=== PATIENT | male | born 1935 | race Caucasian/White ===

== ENCOUNTER → 2016-03-24 | Outpatient (CLI) | payer MEDICARE, OTHER, MEDICAID ==
[~2016-03-24] MED LIST: AC325T PO; ACET325T38 PO; ACID1TAB4 PO; AGM500T PO; AMOX500C5 PO; ARFO15VI IH; ASCO500T20 PO; ASPI-245 PO; ASPI-586 PO; ASPI-860 PO; ATOR40TA2 PO; BENZ-22 PO; BMT1T PO; BUDE0.5A5 IH; BUME2TAB3 PO; CARV12.5 PO; CEPH-331 PO; CEPH-507 PO; CHOL10002 PO; CHOL200014 PO; CITA10TA4 PO; CLIN-78 PO; CLIN150C2 PO; CLR500T PO; CRV6.25T PO; DORZ10DR19 OU; DOXY-182 PO; DOXY100C2 PO; DOXY100T41 PO; DUONEB 0.5 MG-33 ML INH; ESTA1TAB PO; FAMO-107 PO; FIBERSTAT PO; FLUT10SP NS; FLUT10SP NSEACH; GFN600TCR PO; HYDR-3811 PO; HYDR-3881 PO; IPRA3AMP11 INH; KCL20TCR PO; LEVA1.2515 IH; LSRT50T PO; LVF500T PO; MAGN400O7 PO; METO2.5T PO; METO25TA60 PO; METO5TAB6 PO; NITR0.4T SL; OFL.3OP5 RIGHT EAR; PRED10TA PO; PRED20TA PO; PRED50TA PO; PSYL1PAC10 PO; PSYL1PAC11 PO; PSYL660P17 PO; SPIR25TA PO; SULF-221 PO; TIMO10DR OU; TRAZ-28 PO; URSO300C3 PO; WARF1TAB PO; ZOLP10TA PO; lidocaine patch
[2016-03-24 14:20] LABS: ANION GAP 12.2 MEQ/L (3-15); MAGNESIUM* 2.3 mg/dL (1.6-2.3)
== END ==
LOC: LAB 13:53
PROVIDERS: ATTEND Family Medicine
DX: R79.89 Other specified abnormal findings of blood chemistry (principal); E83.42 Hypomagnesemia
CPT/HCPCS: 36415; 80048; 83735

== ENCOUNTER → 2016-05-01 | Outpatient (CLI) | payer MEDICARE, OTHER, MEDICAID | LOC: EMS 17:45 | DX: Z53.20 Procedure and treatment not carried out because of patient's decision for unspecified reasons (principal) ==

== ENCOUNTER 2016-05-16 14:52 | Emergency (ER) | payer MEDICARE, OTHER, MEDICAID ==
[~2016-05-16] VITALS: Ht 205.7 cm; Wt 118.6 kg
[2016-05-16] MEDS ORDERED: BACITRACIN OINTMENT 0.9 GM PACKET TOP ONE (16:15)
[2016-05-16 16:27] VITALS: BP 132/72
== END 2016-05-16 16:25 | disposition home or self-care (01) ==
LOC: ED 14:53
DX: S41.111A Laceration without foreign body of right upper arm, initial encounter (principal); W18.39XA Other fall on same level, initial encounter; Y92.531 Health care provider office as the place of occurrence of the external cause
CPT/HCPCS: 99283; A9270; 99282

== ENCOUNTER → 2016-05-16 | Outpatient (CLI) | payer MEDICARE, OTHER, MEDICAID | LOC: EMS 14:45 | PROVIDERS: ATTEND Family Medicine | DX: S50.311A Abrasion of right elbow, initial encounter (principal); W18.39XA Other fall on same level, initial encounter; Y92.531 Health care provider office as the place of occurrence of the external cause ==

== ENCOUNTER → 2016-05-17 | Outpatient (CLI) | payer MEDICARE, OTHER, MEDICAID | LOC: RAD 13:25 | PROVIDERS: ATTEND Family Medicine | DX: M25.551 Pain in right hip (principal); M16.11 Unilateral primary osteoarthritis, right hip; W19.XXXA Unspecified fall, initial encounter | CPT/HCPCS: 73502 ==

== ENCOUNTER 2016-06-13 17:01 | Observation (INO) | payer MEDICARE, OTHER, MEDICAID ==
[~2016-06-13] VITALS: Ht 182.9 cm; Wt 129.0 kg
[~2016-06-13 17:01] MED LIST changes: -CINN1POW MC; -FLUT16SP NSEACH; -HYDR-33 PO; -LEVO5TAB12 PO; -METO10TA7 PO; -MULT1TAB69 PO; -OMEG10005 PO; -TRAV5DRO OU; -UBID100C17 PO
[2016-06-13] MEDS ORDERED: HYDROmorphone 1 MG/ML (DILAUDID) SYRINGE IV ONE ×2 (17:35→19:00)
[2016-06-13 17:58] LABS: BASOPHILS % (AUTO) 0 % (0-2); EOSINOPHILS % (AUTO) 0 % (0-4); LYMPHOCYTES # (AUTO) 1.2 X10^3; MEAN PLATELET VOLUME 9.9 FL (6.0-9.5); MONOCYTES # (AUTO) 0.7 X10^3; MONOCYTES % (AUTO) 7 % (3-11); NEUTROPHILS # (AUTO) 7.7 X10^3; NEUTROPHILS % (AUTO) 80 % (51-67); PLATELET COUNT 203 10^3uL (150-450); WHITE BLOOD COUNT 9.63 10^3uL (4.0-11.0)
[2016-06-13 17:59] LABS: MEAN CORPUSCULAR HEMOGLOBIN 31.9 PG (26.0-34.0); MEAN CORPUSCULAR HGB CONC 31.7 g/dL (31.0-37.0); MEAN CORPUSCULAR VOLUME 101 FL (80-100)
[2016-06-13 18:02] LABS: ALBUMIN 3.9 g/dL (3.4-5.0); ANION GAP 18.1 MEQ/L (3-15); CALCULATED IONIZED CALCIUM 3.9 mg/dL (3.8-4.6); TOTAL PROTEIN 6.8 g/dL (6.4-8.5)
--- NOTE | 2016-06-13 18:56 | Diagnostic Imaging Report ---
PROCEDURE: CT chest, abdomen, and pelvis without contrast. TECHNIQUE: Multiple contiguous axial images were obtained through the chest, abdomen, and pelvis without the use of intravenous contrast. INDICATION: Chest and abdominal pain CT chest: Lungs are clear. There is coronary atherosclerosis. There are postop changes from CABG surgery. There is no hilar or mediastinal lymphadenopathy. IMPRESSION: No acute abnormalities in the chest. CT abdomen and pelvis: There is a large amount of food residue in the stomach. Liver appears normal. Gallbladder is present. Spleen is not enlarged. Pancreas is normal. Adrenals are normal. There is a cyst on the lateral margin of the right kidney. Left kidney is normal. There is no hydronephrosis or calculus. There is some calcific atherosclerosis of the aorta but no aneurysm. The appendix is normal. Small bowel is not dilated. There is diverticulosis of the colon but no evidence of diverticulitis. Urinary bladder is normal. Prostate is not enlarged. There is right inguinal hernia containing fat. IMPRESSION: Uncomplicated diverticulosis of the colon. No acute abnormality seen in the abdomen or pelvis. Dictated by: Dictated on workstation # [id number]
[2016-06-13] MEDS ORDERED: TETANUS, DIPTHERIA, PERTUSSIS (ADACELL) VACCINE 0.5 ML VIAL IM ONE (19:00)
[2016-06-13] MEDS ORDERED: ALBUTEROL/IPRATROPIUM 3MG-0.5MG/3ML (DUONEB) NEB VIAL INH ONE (19:20)
--- NOTE | 2016-06-13 19:48 | NUR ---
PT ASSISTED TO BATHROOM AND BACK TO THE CHAIR. PT STATES HE DOES NOT WANT TO CLIMB BACK UP INTO THE BED BECAUSE IT IS UNCOMFORTABLE. PT IS SEATED IN CHAIR, RT ARM PROPPED UP ON BEDSIDE TABLE.
--- NOTE | 2016-06-13 19:55 | Diagnostic Imaging Report ---
Indication: Right elbow injury 3 views of right elbow show postop changes from internal fixation of the proximal ulna and olecranon process. Fracture appears healed in good alignment. There is no acute fracture seen. Impression: Old healed fracture proximal humerus with hardware from internal fixation. No acute abnormality seen. Dictated by: Dictated on workstation # [id number]
[2016-06-13] MEDS ORDERED: LIDOCAINE 1% (XYLOCAINE) 20 ML VIAL INJ ONE (20:10)
[2016-06-13] MEDS ORDERED: ceFAZolin 1,000 MG in SODIUM CHLORIDE VIAL (PF) 10 ML IV ONE (21:05)
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
[2016-06-13] MEDS ORDERED: ONDANSETRON 2 MG/ML (Z0FRAN) 2 ML VIAL IV PRN (22:00)
[2016-06-13] MEDS ORDERED: ACETAMINOPHEN 325 MG TAB (TYLENOL) PO PRN (22:00)
[2016-06-13] MEDS ORDERED: CALCIUM CARBONATE CHEWABLE 300 MG (TUMS) TABLET PO PRN (22:00)
[2016-06-13] MEDS ORDERED: POLYETHYLENE GLYCOL 17 GM (MIRALAX) PACKET PO PRN (22:00)
[2016-06-13] MEDS ORDERED: VANCOMYCIN 1,000 MG in SODIUM CHLORIDE 250 ML IV ONE (22:10)
[2016-06-13] MEDS ORDERED: ALBUTEROL 0.083% NEB SOLUTION 2.5 MG/3 ML VIAL INH PRN (22:10)
[2016-06-13] MEDS: ALBUTEROL/IPRATROPIUM 3MG-0.5MG/3ML (DUONEB) NEB VIAL INH SCH (22:10)
[2016-06-13] MEDS ORDERED: NITROGLYCERIN SUBLINGUAL 0.4 MG (NITROQUICK) TABLET SL PRN (22:15)
[2016-06-13] MEDS ORDERED: guaiFENesin ER 600 MG (MUCINEX) TAB PO PRN (22:15)
--- NOTE | 2016-06-13 22:20 | NUR ---
Admitted to room. Oriented to room and hospital procedures. Jim Wrap intact to right elbow with small amount of blood showing through. Bilateral lower legs have 3 plus edema up to knee. Dressing to right anterior ankle area dry and intact, where PCP removed fluid from blistered area yesterday.
[2016-06-13 22:30] VITALS: BP 147/62
[2016-06-13 22:33] VITALS: BP 147/62
--- NOTE | 2016-06-13 22:50 | NUR ---
Dr Greene on tele doc to assess patient.
--- NOTE | 2016-06-13 23:20 | NUR ---
Patient sitting on edge of bed to eat, before he lays down.
[2016-06-13] MEDS ORDERED: VANCOMYCIN 1000 MG VIAL ONE (23:41)
[2016-06-13] MEDS ORDERED: SODIUM CHLORIDE 250 ML ONE (23:41)
[2016-06-13] MEDS ORDERED: CARVEDILOL 12.5 MG (COREG) TABLET ONE (23:43)
--- NOTE | 2016-06-13 23:45 | NUR ---
Ate 100% of meal. Ready for sleep. Right arm elevated on pillow. Dressing wrapped with Coban remains intact. Small amount of bloody drainage noted under coban. Right hand bruised, No bruising of right rib area. Has large reddened area on posterior left leg that patient states is from old stasis ulcer. Stood at side of bed and voided 300 cc yellow urine without difficulty. Call light within reach. Denies need for pain medication at this time.
[2016-06-13 23:46] VITALS: BP 136/65
[2016-06-13] MEDS: CARVEDILOL 6.25 MG (COREG) TAB PO SCH (23:49)
[2016-06-14 04:07] VITALS: BP 130/67
[2016-06-14 06:02] LABS: BASOPHILS % (AUTO) 0 % (0-2); EOSINOPHILS % (AUTO) 0 % (0-4); LYMPHOCYTES # (AUTO) 1.5 X10^3; MEAN CORPUSCULAR HEMOGLOBIN 31.1 PG (26.0-34.0); MONOCYTES % (AUTO) 11 % (3-11); NEUTROPHILS # (AUTO) 5.9 X10^3; NEUTROPHILS % (AUTO) 70 % (51-67); PLATELET COUNT 150 10^3uL (150-450)
[2016-06-14] MEDS: PANTOPRAZOLE 40 MG (PROTONIX) TAB PO SCH (06:06)
[2016-06-14 06:17] LABS: MEAN CORPUSCULAR HGB CONC 30.6 g/dL (31.0-37.0); MEAN CORPUSCULAR VOLUME 102 FL (80-100)
[2016-06-14 06:24] LABS: ANION GAP 12.2 MEQ/L (3-15); PHOSPHORUS 4.9 mg/dL (2.4-4.9)
--- NOTE | 2016-06-14 06:30 | NUR ---
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 Arm hangs to his side. Moves right arm with left hand when he needs it moved. Uses walker at home and here, yet difficult at times due to recent right arm injury. Moves fingers on both hands. Generalized weakness of right arm. Dressing intact to right ankle are, where patient stated he had a large blister and Dr Cardona removed fluid from area yesterday in the office. IV NS continues to infuse at 100 cc an hour without complications to site. Call light within reach.
[2016-06-14] MEDS: BUDESONIDE NEBS 0.5 MG/2ML (PULMICORT) AMP INH SCH ×2 (07:35→20:51)
[2016-06-14] MEDS: ALBUTEROL/IPRATROPIUM 3MG-0.5MG/3ML (DUONEB) NEB VIAL INH SCH ×4 (07:36→20:51)
[2016-06-14 07:59] VITALS: BP 119/52
[2016-06-14] MEDS: HYDROmorphone 1 MG/ML (DILAUDID) SYRINGE IV PRN ×2 (08:11→12:42)
[2016-06-14] MEDS ORDERED: DOCUSATE SODIUM 100 MG (COLACE) CAP PO PRN (08:55)
[2016-06-14] MEDS ORDERED: NS FLUSH 3 ML PRN IV (09:20)
[2016-06-14] MEDS ORDERED: NS FLUSH 10 ML PRN IV (09:20)
--- NOTE | 2016-06-14 09:56 | Progress Note (E) ---
Progress Note S: Awake complains of feeling sore all over, tolerated breakfast O: I & O Past 24 hrs 06/14/16 07:00 Intake Total 840 ml Output Total 300 ml Balance 540 ml Intake Oral 240 ml IV Total 600 ml Output Urine Total 300 ml Vitals: Vital Signs Date Time Temp Pulse Resp B/P Pulse Ox O2 Delivery O2 Flow Rate FiO2 06/14/16 07:59 96.8 60 20 119/52 94 Room air GEN: Awake, alert, oriented, NAD HEENT: EOMI, PERRL, moist oral mucosa. CV: RRR S1 S2 normal with no murmur LUNGS: CTA B ABD: Soft, NT/ND with normal bowel sounds. EXTR: No C/C/E. Normal peripheral pulses. INTEG: No rash. NEURO: No focal motor neuro deficit. Weight: 118.1 kg CBC BMP Last 24 Hrs 06/13/16 17:44 06/14/16 05:25 Laboratory Results Past 24 Hrs 06/13/16 17:44: Alanine Aminotransferase (ALT/SGPT) 28, Albumin 3.9, Albumin/Globulin Ratio 1.344, Alkaline Phosphatase 75, Anion Gap 18.1, Aspartate Amino Transf (AST/SGOT ) 38, BUN/Creatinine Ratio 29, Basophils # (Auto) 0.0, Basophils (%) (Auto) 0, Blood Urea Nitrogen 44, Calcium Level 8.6, Calcium/Ionized Calcium Ratio 3.9, Calculated Osmolality 291, Carbon Dioxide Level 27, Chloride Level 105, Creatinine 1.51, Eosinophils # (Auto) 0.0, Eosinophils (%) (Auto) 0, Estimat Glomerular Filtration Rate 53.8, Estimated GFR (Non- 44.5, Glucose Level 116, Hematocrit 37.90, Hemoglobin 12.0, Lymphocytes # (Auto) 1.2, Lymphocytes (%) (Auto) 12, Mean Corpuscular Hemoglobin 31.9, Mean Corpuscular Hemoglobin Concent 31.7, Mean Corpuscular Volume 101, Mean Platelet Volume 9.9, Monocytes # (Auto) 0.7, Monocytes (%) (Auto) 7, Neutrophils # (Auto) 7.7, Neutrophils (%) (Auto) 80, Platelet Count 203, Potassium Level 5.5, Prothromb Time International Ratio 1.1, Prothrombin Time 11.9, Red Blood Count 3.76, Red Cell Distribution Width 13.8, Sodium Level 145, Total Bilirubin 0.8, Total Protein 6.8, White Blood Count 9.63 06/14/16 05:25: Albumin 3.0, Anion Gap 12.2, Basophils # (Auto) 0.0, Basophils (%) (Auto) 0, Blood Urea Nitrogen 43, Calcium Level 8.4, Carbon Dioxide Level 28, Chloride Level 108, Creatinine 1.48, Eosinophils # (Auto) 0.0, Eosinophils (%) (Auto) 0, Estimat Glomerular Filtration Rate 55.1, Estimated GFR (Non- 45.5, Glucose Level 89, Hematocrit 34.30, Hemoglobin 10.5, Lymphocytes # (Auto) 1.5, Lymphocytes (%) (Auto) 18, Mean Corpuscular Hemoglobin 31.1, Mean Corpuscular Hemoglobin Concent 30.6, Mean Corpuscular Volume 102, Mean Platelet Volume 10.0, Monocytes # (Auto) 1.0, Monocytes (%) (Auto) 11, Neutrophils # ( Auto) 5.9, Neutrophils (%) (Auto) 70, Platelet Count 150, Potassium Level 4.3, Red Blood Count 3.38, Red Cell Distribution Width 13.9, Sodium Level 144, White Blood Count 8.40, Phosphorus Level 4.9 IMAGING: ELBOW, RIGHT, 3 VIEWS Indication: Right elbow injury 3 views of right elbow show postop changes from internal fixation of the proximal ulna and olecranon process. Fracture appears healed in good alignment. There is no acute fracture seen. Impression: Old healed fracture proximal humerus with hardware from internal fixation. No acute abnormality seen. CT CHEST/ABDOMEN/PELVIS WO PROCEDURE: CT chest, abdomen, and pelvis without contrast. CT chest: Lungs are clear. There is coronary atherosclerosis. There are postop changes from CABG surgery. There is no hilar or mediastinal lymphadenopathy. IMPRESSION: No acute abnormalities in the chest. CT abdomen and pelvis: There is a large amount of food residue in the stomach. Liver appears normal. Gallbladder is present. Spleen is not enlarged. Pancreas is normal. Adrenals are normal. There is a cyst on the lateral margin of the right kidney. Left kidney is normal. There is no hydronephrosis or calculus. There is some calcific atherosclerosis of the aorta but no aneurysm. The appendix is normal. Small bowel is not dilated. There is diverticulosis of the colon but no evidence of diverticulitis. Urinary bladder is normal. Prostate is not enlarged. There is right inguinal hernia containing fat. IMPRESSION: Uncomplicated diverticulosis of the colon. No acute abnormality seen in the abdomen or pelvis. ASSESSMENT 1) S/P Mechanical Fall w/ laceration to the right elbow which has hardware from prior internal fixation; laceration repaired by ER physician. Patient's wound irrigated. closed and he received 1 gram of Ancef. 2) Right elbow pain, chest wall/rib pain s/p mechanical fall; concern re: patient's ability to care for himself at home at this time 3) Mild Dehydration and CKD 4) COPD 5) HTN 6) HLD 7) CAD s/p CABG 8) H/o CVA 9) H/o chronic back and leg pain 10) LE edema and venous stasis dermatitis 11) [place] PLAN: Heart Healthy diet Home meds as indicated PT consult SW/Case management consult for possible placement- in the past pt has refused placement PO and IV Pain meds if needed Duoneb treatments QID and Albuterol q 2 hours prn CPAP at night Fall Precautions Dr Pizarro' note : I saw Mr Jeffers today and he still c/o pain.He denied sob and admitted rt. elbow and chest pain from the impact of the fall.He denies and nausea,emesis or diarrhea. heart demonstrates a regular rate and rhythm lungs show bilateral wheezes abdomen is soft ;bowel sounds are active extremities are not cyanotic or edemetous assessment: 1.s/p mechanical fall 2. copd 3.CKD,MILD DEhydration 4.hypertension 5.cad 6.CABG X 6 VESSELS 7.CVA BY HISTORY 8.chronic back pain 9.chronic leg pain Plan: pain meds; cpap and duoneb along with albuterol I have read and agree with the diagnoses,the plan and the progress note written by Ms Graves. Meche Graves WINDOWS DESKTOP SUPPORT Jun 14, 2016 09:56 HERNAN PIZARRO DO Jun 14, 2016 15:12
[2016-06-14] MEDS: CARVEDILOL 6.25 MG (COREG) TAB PO SCH ×2 (10:06→18:30)
[2016-06-14] MEDS: CHOLECALCIFEROL 1000 INT UNITS (VITAMIN D3) TABLET PO SCH (10:06)
[2016-06-14] MEDS: PSYLLIUM SF (METAMUCIL) PACKET PO SCH (10:06)
[2016-06-14] MEDS: predniSONE 10 MG (DELTASONE) TABLET PO SCH (10:06)
[2016-06-14] MEDS: BUMETANIDE 1 MG (BUMEX) TAB PO SCH ×2 (10:06→12:37)
[2016-06-14] MEDS: SPIRONOLACTONE 25 MG (ALDACTONE) TABLET PO SCH (10:06)
[2016-06-14] MEDS: ASPIRIN 81 MG CHEW (CHILDREN'S ASA) PO SCH (10:06)
[2016-06-14] MEDS: FLUTICASONE NASAL 50 MCG/SPRAY (FLONASE) 16 GM BTL NS SCH (10:09)
[2016-06-14] MEDS: MAGNESIUM HYDROXIDE 80MG/ML (MILK OF MAGNESIA) 30 ML UDC PO PRN (10:10)
[2016-06-14] MEDS: TIMOLOL OU SCH ×2 (10:10→20:34)
[2016-06-14] MEDS: DORZOLAMIDE OU SCH ×2 (10:10→20:34)
[2016-06-14] MEDS ORDERED: METO10TA7 PO (10:59)
[2016-06-14] MEDS ORDERED: FLUT16SP NSEACH (10:59)
[2016-06-14] MEDS ORDERED: TRAV5DRO OU (10:59)
[2016-06-14] MEDS ORDERED: LEVO5TAB12 PO (10:59)
[2016-06-14] MEDS: ARFORMOTEROL NEB SOLUTION (BROVANA) 15 MCG/2 ML VIAL IH SCH ×2 (11:25→20:50)
[2016-06-14 11:41] VITALS: BP 116/59
[2016-06-14] MEDS ORDERED: HYDR-33 PO (11:55)
--- NOTE | 2016-06-14 13:25 | NUR ---
Visited with Pt. who reported he lives in his own apartment by himself. He stated he has had some falls. He said he gets dizzy and he is supposed to have crystals but they don't stay in his ears. Pt. stated when he falls he uses his lifeline. He has a walker at home but reports he is supposed to get a motorized chair this week. Pt. has home health services through [email or web address]. They come in and help with bathing, meals, and cleaning. He also receives PT/OT. Pt. states he knows at some point he will need to move to a facility but he is not ready for that now. He may move this winter to [email or web address] assisted living. SW presented the JOSE form to Pt. and he signed and dated the form. A copy was given to the Pt. and the original was placed in the chart. Addendum: 06/15/16 at 0901 by Maryanne Hinton CORTEZ contacted by Ida from [facility]. Ida is a home health aide caregiver for Pt. She reported Pt. is scheduled to obtain a motorized power wheelchair this week. He will be renting this chair until they are able to get things processed through Medicare. Pt. does receive home health services through [email or web address]. He also receives additional services for medication management, bathing, grooming, cleaning his apartment and laundry. Pt. has Telehealth through [facility] where they monitor his weight, blood pressure and 02 sats. Once Pt. is discharged CORTEZ will contact Ida who will then contact these agencies to resume services.
[2016-06-14] MEDS ORDERED: MULT1TAB69 PO (14:46)
[2016-06-14] MEDS ORDERED: OMEG10005 PO (14:47)
[2016-06-14] MEDS ORDERED: UBID100C17 PO (14:47)
[2016-06-14] MEDS ORDERED: CINN1POW MC (14:48)
[2016-06-14] MEDS: HYDROcodone/APAP 5 MG/325 MG (NORCO) TAB PO PRN ×2 (14:57→21:14)
--- NOTE | 2016-06-14 15:07 | NUR ---
MED REC COMPLETE--current med list obtained from external med history application, list provided by patient's PCP (Cherise), patient report (prescription bottles and interview). Completed by Kevon Jeronimo, Pharm. D. Candidate 2017.
[2016-06-14 15:36] VITALS: BP 121/60
--- NOTE | 2016-06-14 15:43 | Physical Therapy Evaluation(E) ---
Plan of Care STG: Plan-Treatment Functional: Trans. Safe w/ AD STG Time Frame: 1 Day Goals Discussed/Agreed: Yes Plan: Balance, Gait & Transfer Training, Progressive Ambulation, PROM Bilateral LE, Transfer Training, Therapy Excercise Discharge Recommendations: Home Independently (Recommend continuing home health services with PT and OT services. ) Aware of Dx and Prognosis: Yes Aware of Risk & Benefit: Yes To be Seen: Daily Monday-Monday Initial Evaluation Service Date/Time 06/14/16, 15:32 Primary Diagnosis: (1) COPD exacerbation (2) Urinary tract infection (3) Weakness ICD Code: R53.1 (4) Fall on same level from slipping, tripping or stumbling ICD Code: W18.39XA Treatment Diagnosis: (1) Syncope ICD Code: R55 (2) Physical deconditioning ICD Code: R53.81 (3) Weakness ICD Code: R53.1 Onset Date: 06/13/2016 Start of Care Date: Jun 14, 2016 Resuscitation Status: Do Not Resuscitate Precaution/Isolation: Standard Precautions Fall Level: High Risk 51 or greater Initial Assessment Reason for Rehab: Increase Mobility, Increase Strength, Increase Balance, Increase Transfers, Increase Endurance Medical History: COPD, CAD, CABG, CHF, CVA, Hypertension, Other (Vertigo, [place] with CPAP, [place],. ) Pain Location/Comment Pain reported in right ribs and elbow. Prior Level of Function The patient lives at home alone with daughters who live in town. He ambulates with AWW in home and has been approved to get a motorized scooter he will use outdoors secondary to his instruction to not ambulate outdoors alone. No entry steps as he lives in an apartment. Occasionally he does his own grocery shopping in which he takes a taxi to the store. Patient was receiving home health services including physical therapy secondary to right lower extremity weakness and history of falls. Rehabilitation Potential: Good Rehab Potential Based on Patient's independent level of function. Assistive Device: FWW Distance Walked in Feet 310 feet with verbal cues for heel strike/push off. Assist: Min Assist/Contact Guard ROM/Strength Elbow Mobility: Right Elbow Strength: 2- Left Elbow Strength: 3 Hip Mobility: Right Hip Strength: 4 Left Hip Strength: 4 Knee Flexion Mobility: Right Knee Flexion Strength: 4 Left Knee Flexion Strength: 4 Knee Extension Mobility: Right Knee Extension Strength: 4 Left Knee Extension Strength: 4 Ankle Mobility: Right Ankle Strength: 4 Left Ankle Strength: 4 Assessment/Goals Initial Transfer Assessment Rolling: Not Assessed/NA Sitting Edge of Bed: Modified [place] Supine-Sit: Not Assessed/NA Sit-Stand from Bed: Supervision or setup Stand-Sit: Supervision or setup Ambulation: Contact Guard Assist Distance Walked in Feet 300 feet with 5 short standing rest breaks and vc's for gait sequencing. Comment Applied dycem to right walker hand try out person to improve patient's ability his hand to stay in place. Transfer Short Term Goals Rolling: Modified [place] Sit-Supine: Modified [place] Sitting Edge of Bed: Modified [place] Supine-Sit: Modified [place] Sit-Stand from bed: Modified [place] Stand-Sit: Modified [place] Ambulation: Modified [place] Distance to Walk in Feet 600 feet with FWW Coding Time In: 1335 Time Out: 1411 Total Minutes: 36 Charges: 48194 Eval< 20 min, 22101 Ther Activity Rehab G Codes Current Functional Status: [id number] Current (Patient scores an 8/12 on gait portion of Tinetti and lower extremity strength hip flexion, knee fleixon/ extension, and ankle dorsiflexion 4/5. ) Modifier: CJ 20% but <40% Projected Functional Goal: [id number] Goal Modifier: CJ 20% but <40% TOM JIMENEZ PT Jun 14, 2016 15:43
--- NOTE | 2016-06-14 19:30 | NUR ---
Patient has had adequate pain control with oral pain medications this afternoon. Encouraged him to keep right arm elevated as much as possible to help with swelling in the hand and lower arm. Dressing on this arm remains in place as ordered. Allenan wrap assessed frequently throughout the shift to ensure it's not getting too tight. Educated the patient on doing ADL's using mainly the left hand because he has pain in the right arm that limits his movement.
[2016-06-14 19:49] VITALS: BP 126/62
--- NOTE | 2016-06-14 20:30 | NUR ---
Patient up to walk a lap in chiu with walker. Reports pain but gait steady and no needs at this time. Returned to chair. No needs at this time.
--- NOTE | 2016-06-14 20:51 | NUR ---
Pt found in chair no distress Aerosol given Brovana then Duoneb/Pulmicort via mp Sats 95%RA prior to treatment, BS apperars clear and sl diminished before with no change after HR 57/60 RR 16 non productive cough... Home Cpap set up with 2L O2 bleed in.... tolerated treatment well BLS DAYTIME BABYSITTER
[2016-06-14] MEDS ORDERED: CITALOPRAM 10 MG (CELEXA) TABLET PO SCH (21:00)
[2016-06-15 00:14] VITALS: BP 140/67
[2016-06-15] MEDS: HYDROcodone/APAP 5 MG/325 MG (NORCO) TAB PO PRN ×2 (04:09→10:55)
[2016-06-15 04:27] VITALS: BP 135/65
[2016-06-15] MEDS: PANTOPRAZOLE 40 MG (PROTONIX) TAB PO SCH (06:04)
--- NOTE | 2016-06-15 06:22 | NUR ---
Patient rests in bed throughout night without needs. Continues to report pain in arm and right ribs. No needs at this time.
[2016-06-15 07:22] VITALS: BP 120/60
[2016-06-15] MEDS: ALBUTEROL/IPRATROPIUM 3MG-0.5MG/3ML (DUONEB) NEB VIAL INH SCH ×3 (07:29→15:10)
[2016-06-15] MEDS: BUDESONIDE NEBS 0.5 MG/2ML (PULMICORT) AMP INH SCH (07:29)
[2016-06-15] MEDS: ARFORMOTEROL NEB SOLUTION (BROVANA) 15 MCG/2 ML VIAL IH SCH (07:30)
[2016-06-15] MEDS: CHOLECALCIFEROL 1000 INT UNITS (VITAMIN D3) TABLET PO SCH (08:52)
[2016-06-15] MEDS: predniSONE 10 MG (DELTASONE) TABLET PO SCH (08:52)
[2016-06-15] MEDS: PSYLLIUM SF (METAMUCIL) PACKET PO SCH (08:52)
[2016-06-15] MEDS: CARVEDILOL 6.25 MG (COREG) TAB PO SCH ×2 (08:52→19:15)
[2016-06-15] MEDS: SPIRONOLACTONE 25 MG (ALDACTONE) TABLET PO SCH (08:52)
[2016-06-15] MEDS: ASPIRIN 81 MG CHEW (CHILDREN'S ASA) PO SCH (08:52)
[2016-06-15] MEDS: BUMETANIDE 1 MG (BUMEX) TAB PO SCH ×2 (08:52→13:24)
[2016-06-15] MEDS: MAGNESIUM HYDROXIDE 80MG/ML (MILK OF MAGNESIA) 30 ML UDC PO PRN (08:52)
[2016-06-15] MEDS: FLUTICASONE NASAL 50 MCG/SPRAY (FLONASE) 16 GM BTL NS SCH (08:56)
[2016-06-15] MEDS: TIMOLOL OU SCH (08:57)
[2016-06-15] MEDS: DORZOLAMIDE OU SCH (08:57)
[2016-06-15] MEDS ORDERED: NS FLUSH 3 ML DAILY IV SCH (09:00)
--- NOTE | 2016-06-15 09:04 | OT Therapy Evaluation (E) ---
POC Plan of Care Problems Identified: Activity Tolerance, ADLs, Balance, Judgment, Lt UE Strength, Safety Awareness Plan: Evaluation-OT, ADL/Self Care Management, Therapy Exercises, Therapy Activities, Pt/Family/Staff Education Frequency of OT: Five times weekly Duration of OT: Other (3 days ) Therapy to Include: ADL training, Balance with ADLs, Pt/family education, UE strengthing Discharge Recommendations: Home Independently (Pt would benefit from home health PT and OT services. Pt wishes not to complete skilled therapy. ) Pt. Aware of Dx and Prognosis: Yes Pt. Aware of Risk & Benefit: Yes Goals: Discussed with patient Short Term Goals STG Time Frame: 1 Day Will Dress Upper Extremity: With Setup/SBA Will Dress Lower Extremity: With Setup/SBA Will do Bathing: With Setup/SBA Will do Toileting: With Setup/SBA Will Perform Funct Transfer: With Setup/SBA Residential Goals LTG Time Frame: 3 Days Will Dress Upper Extremity: Independently Will Dress Lower Extremity: Independently Will do Toilet Transfers: Independently Will do Toilieting: Independently Inital Evaluation/General Service Date/Time 06/15/16, 09:04 Primary Diagnosis: (1) COPD exacerbation (2) Urinary tract infection (3) Weakness ICD Code: R53.1 (4) Fall on same level from slipping, tripping or stumbling ICD Code: W18.39XA Treatment Diagnosis: (1) Weakness ICD Code: R53.1 Onset Date: 06/13/16 Start of Care Date: Jun 15, 2016 Precaution/Isolation: Standard Precautions Fall Level: High Risk 51 or greater Resuscitation Status: Do Not Resuscitate Reason for Referral: Evaluation and Treat Pertinent Medical History: COPD, CAD, CABG, CHF, CVA, Hypertension, Other ( Vertigo, [place] with CPAP, [place],. ) Pain Locattion/Comments Pt reports 6/10 pain on R arm and 8/10 pain along ribs on right side Oxygen Needed: Room air Rehabilitation Potential: Good Potential Based On Patient's motivation to return home. Rational for Skilled Treatment: Allow return to home, Assistance with ADLs, Deconditioning, Maximize Safety, Prevent Falls Living Status Prior to Admit: Alone Prior to onset, pt receives assistance with self care tasks and medication management from home health. Pt reports receiving assistance with laundry, cleaning, bathing and medication management. Pt has a Life Alert. Pt receives Meals on Wheels once a day and completes microwave meals. Plans Following Discharge: Return Home Support Persons: Adult Child (2 daughters living within the area. ) Entry Into Home: Level Entry Shower and Tub Type: Walk in/curtain-grab bars Assist Devices: Tub Bench, 4 WW, Other (Pt has recently been approved by Medicare for an electric wheelchair) Toilet Type: Standard (Pt has an emergency call light in the bathroom. ) Current Function Assessment Mental Status Patient Orientation: Person, Place, Time, Situation Mental Status: Alert Cognition Attention: Intact Memory: Intact Safety/Judgement: Impaired Visual/Perceptual Skills Glassess: Yes (Lined trifocals ) Hearing: Impaired Hand Dominance Hand Dominance: Left ROM/Strength ROM Comment LUE WFL in all elbow, shoulder and wrist planes. RUE able to only flex and extend fingers on right hand. 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 Strength Comment LUE 4/5, RUE 2-/5, Weak gross grasp of right hand compared to left. Skin and Positioning Integumentary: Abrasion/laceration (R forearm ) Positioning: Place arm on pillow Neurological Coordination: Minimally impaired Endurance Activity Endurance: Fair Bed Mobility/Transfers Bed Mobility: Minimum assist, Verbal Clues, With bed controls Supine from Sit: Minimum assist, With bed controls, Verbal clues Sit to Stand: CGA Chair Transfer: CGA ADLs Hand : Feeding Self: SBA Dressing Dressing: Minimum assist (Assitance with lower body dressing seconary to increased pain in ribs. ) Bathing Shower/Bench Transfer Ability: Minimum assist Toileting Toilet Hygiene: Minimum Assist Toilet Transfer Ability: CGA Additional Assessment/Comments The patient presents with decreased strength, decreased activity tolerance and decreased ability to complete self care tasks independently requiring assistance from others. Presents with co-morbidities affecting occupational performance. Required no modification of tasks or assistance during evaluation placing pt at a low complexity level. CPT/G Codes Time In: 8:02 Time Out: 8:25 Total Minutes: 23 (04/04 eval) CPT Codes: 42881 Eval< 20 minutes (04/04 eval) G Codes: G8987 Selfcare Cur Status (CK), G8988 Selfcare Goal Stat (CJ- G-codes determined by clnical judgment and use of the Jeff Index to assess one's independence with self care tasks. Pt required asssitance with funcional transfer, mobility, toliet use, lower body dressing and set up with eating. ) PARESH GLOVER OT Jun 15, 2016 09:04
--- NOTE | 2016-06-15 09:22 | NUR ---
Called Dr. Otoole to request a consult prior to any discharge plans.
--- NOTE | 2016-06-15 10:15 | NUR ---
Assessed patient's right arm wound with Dr. Suarez. Wound was cleansed in the shower and a telfa and gauze applied.
[2016-06-15 11:36] VITALS: BP 119/66
--- NOTE | 2016-06-15 14:00 | NUR ---
Patient pain has been controlled with Lortab 5 mg. He has ambulated the halls twice today. Worked with OT/PT to help the patient learn to do ADL's at home.
--- NOTE | 2016-06-15 14:42 | Progress Note (E) ---
Progress Note ml June I saw Mr Jeffers in his room today while he was seated in a chair. He c/o his rt. elbow cuts leaking blood,but denied sob;denied chest pains; denied abdominal pains and he denied any leg pain when using his walker. He does make mention of his belief his ribs still hurt a lot. o] VSS; PT. IS AFEBRILE lungs are CTA HEART SHOWS RRR abdomen is soft and non tender; bs active extremities-no c/c/edema I & O Cumulative 06/14/16 06/15/16 Cumulative From/Thru 18:59 06:59 06/13/16 17:15 - 06/15/16 06:06 Intake Total 457 ml 900 ml 2197 ml Output Total 500 ml 2425 ml 3225 ml Balance -43 ml -1525 ml -1028 ml ASSESSMENT 1) S/P Mechanical Fall w/ laceration to the right elbow which has hardware from prior internal fixation; laceration repaired by ER physician. Patient's wound irrigated. closed and he received 1 gram of Ancef. 2) Right elbow pain, chest wall/rib pain s/p mechanical fall; concern re: patient's ability to care for himself at home at this time 3) Mild Dehydration and CKD 4) COPD 5) HTN 6) HLD 7) CAD s/p CABG 8) H/o CVA 9) H/o chronic back and leg pain 10) LE edema and venous stasis dermatitis 11) [place] Plan : We shall very most likely discharge Mr Jeffers after Dr. Otoole sees him later this afternoon. HERNAN PIZARRO DO Jun 15, 2016 14:42
[2016-06-15 16:02] VITALS: BP 121/62
--- NOTE | 2016-06-15 16:17 | PT Daily Note Inpatient (E) ---
PT Daily Treatment Service Date/Time 06/15/16, 16:12 Medical Diagnosis: (1) COPD exacerbation (2) Urinary tract infection (3) Weakness ICD Code: R53.1 (4) Fall on same level from slipping, tripping or stumbling ICD Code: W18.39XA Physical Therapy: (1) Syncope ICD Code: R55 (2) Physical deconditioning ICD Code: R53.81 (3) Weakness ICD Code: R53.1 Precaution/Isolation: Standard Precautions Resuscitation Status: Do Not Resuscitate Fall Level: High Risk 51 or greater Subjective Pt sitting in recliner waiting for . Agrees to therapy. Oxygen Delivery: Room air Treatments Sit, Stand, Supine: Sitting, Long Sitting Extremity: Both Lower Extremity Assistance: AROM Repetition: 1 x 10 Exercise: AP, QS, Heel Slides, Hip Abduction, SLR, LAQ, Hip Flexion Transfers Sit-Stand from bed: Supervision or setup (from recliner) Gait Ambulation: Contact Guard Assist Distance Walked: 300 feet 4 standing rest breaks. Assistive Device: FWW Gait Description: Decreased [place], Slow, Short Step Length Education/Plan Plan Patient will be seen: Daily Monday-Monday Coding Time In: 16:00 Time Out: 16:16 Total Minutes: 16 Charges: 95681 Exercise Therp 15 m (16 minutes) Gian Lau SUPERVISOR FERTILIZER Jun 15, 2016 16:17
--- NOTE | 2016-06-15 17:10 | NUR ---
Dr. Otoole here to assess the patient's right arm wound. He would like the patient to follow up with him as an outpatient in a week.
--- NOTE | 2016-06-15 17:45 | Progress Note (E) ---
Progress Note Surgery Impression: Laceration right elbow and epidermal skin avulsions right upper and lower arm, stable Recommendation: As discussed, dress wounds with Telfa +/- Bacitracin or Neosporin ointment daily, top dressed with gauze and Kerlix roll. May soak the dressing with sterile NS to assist removal. Keep arm elevated. Appointment to see me in 1 week. Call for increased pain, fever, redness. Also needs orthopedic evaluation regarding the transiently exposed hardware in his forearm. Full note dictated #[id number] Thanks ANDRESSA COLON MD Jun 15, 2016 17:45
--- NOTE | 2016-06-15 19:19 | Discharge Instructions (E) ---
Discharge Instructions Instructions dO CHANGE THE DRESSING EVERY DAY ON YOUR RT. ELBOW AREA. uSE NEOSPORIN OR BACITRACIN ANTIBIOTIC OINTMENT WHEN YOU CHANGE THE BANDAGE. BE SURE TO FOLLOW WITH DR. OTOOLE IN ONE WEEK. Activity Instructions ACTIVITY as tolerated ,but be very careful not to fall with the walker. Doctor's Appointment Make appt. with Dr Otoole to see him in about a week. Discharge Diet: Heart Healthy HERNAN PIZARRO DO Jun 15, 2016 19:19
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
--- NOTE | 2016-06-15 20:05 | NUR ---
Dressing changed to right elbow and padded well. Home instructions given to patient. Notified Home Health Nurse and papers fax'd to Home Health. Patient sent home meds with daughter earlier today. Discharged per wheelchair accompanied by friends. All belongings sent with patient.
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
--- NOTE | 2016-06-16 10:37 | Physical Therapy Evaluation(E) ---
Discharge Summary Service Date/Time 06/16/16, 10:34 Primary Diagnosis: (1) COPD exacerbation (2) Urinary tract infection (3) Weakness ICD Code: R53.1 (4) Fall on same level from slipping, tripping or stumbling ICD Code: W18.39XA Treatment Diagnosis: (1) Syncope ICD Code: R55 (2) Physical deconditioning ICD Code: R53.81 (3) Weakness ICD Code: R53.1 Onset Date: 06/13/2016 Start of Service Date: Jun 14, 2016 Summary of Progress Summary Comment The patient actively participated in physical therapy treatments. He transfers sit to stand with supervision and ambulates with FWW CGA. He would benefit from additional therapy services on home health basis and PT would also recommend addition of OT services. PT recommended patient use FWW in his home versuses rolling walker to improve he stability. Discussion was also completed on options to address his vertigo and to discuss them with his physician or the home health PT. Distance Walked in Feet 300 feet with FWW CGA . Assistive Device: FWW Assist: Min Assist/Contact Guard Gait Description: Decreased Victor[place], Slow, Short Step Length Transfer STG and Status Rolling: Modified [place] Goal Status at Discharge: Goal Not Met Sit-Supine: Modified [place] Goal Status at Discharge: Goal Not Met Sitting Edge of Bed: Modified [place] Goal Status at Discharge: Goal Not Met Supine-Sit: Modified [place] Goal Status at Discharge: Goal Not Met Sit-Stand from bed: Modified [place] Goal Status at Discharge: Goal Partially Met Stand-Sit: Modified [place] Goal Status at Discharge: Goal Partially Met Ambulation: Modified [place] Goal Status at Discharge: Goal Partially Met Plan of Care Goals and Status STG: Plan-Treatment Functional: Trans. Safe w/ AD Goal Status at Discharge: Goal Partially Met Discharge Recommendations: Home Independently (Home health rehabilitaiton services including both PT and OT. ) Service Recommendations: Continue Service TOM JIMENEZ PT Jun 16, 2016 10:37
== END 2016-06-15 20:05 | disposition home health service (06) ==
LOC: ED 17:06 → MED/SURG 21:48
PROVIDERS: ADMIT Internal Medicine; ATTEND Internal Medicine
PROC: 0JQG0ZZ Repair Right Lower Arm Subcutaneous Tissue and Fascia, Open Approach (ICD-10-PCS; principal; 2016-06-13)
DX: S51.011A Laceration without foreign body of right elbow, initial encounter (principal); E86.0 Dehydration; S20.211A Contusion of right front wall of thorax, initial encounter; S30.1XXA Contusion of abdominal wall, initial encounter; J44.9 Chronic obstructive pulmonary disease, unspecified; I25.10 Atherosclerotic heart disease of native coronary artery without angina pectoris; I11.0 Hypertensive heart disease with heart failure; I50.9 Heart failure, unspecified; E78.5 Hyperlipidemia, unspecified; I87.2 Venous insufficiency (chronic) (peripheral); W01.198A Fall on same level from slipping, tripping and stumbling with subsequent striking against other object, initial encounter; Y92.009 Unspecified place in unspecified non-institutional (private) residence as the place of occurrence of the external cause; Z87.891 Personal history of nicotine dependence; Z86.73 Personal history of transient ischemic attack (TIA), and cerebral infarction without residual deficits; Z95.1 Presence of aortocoronary bypass graft; Z23 Encounter for immunization; T84.89XA Other specified complication of internal orthopedic prosthetic devices, implants and grafts, initial encounter; Y83.8 Other surgical procedures as the cause of abnormal reaction of the patient, or of later complication, without mention of misadventure at the time of the procedure; S51.801A Unspecified open wound of right forearm, initial encounter; S41.101A Unspecified open wound of right upper arm, initial encounter
CPT/HCPCS: 12034; 36415; 71250; 73080; 74176; 80053; 80069; 85025; 85610; 90471; 90715; 94640; 94760; 96365; 96375; 96376; 97110; 97161; 97165; 97530; 99283; A9270; G0378; G8987; G8988; J0690; J1170; J3370; J7030; J7050; 96374; 99218; 99284

== ENCOUNTER → 2016-06-13 | Outpatient (CLI) | payer MEDICARE, OTHER, MEDICAID ==
[~2016-06-13] MED LIST changes: +CINN1POW MC; +FLUT16SP NSEACH; +HYDR-33 PO; +LEVO5TAB12 PO; +METO10TA7 PO; +MULT1TAB69 PO; +OMEG10005 PO; +TRAV5DRO OU; +UBID100C17 PO
== END ==
LOC: EMS 17:00
PROVIDERS: ATTEND Family Medicine
DX: R07.1 Chest pain on breathing (principal); S51.011A Laceration without foreign body of right elbow, initial encounter; W01.0XXA Fall on same level from slipping, tripping and stumbling without subsequent striking against object, initial encounter; Y93.89 Activity, other specified; Y92.038 Other place in apartment as the place of occurrence of the external cause

== ENCOUNTER 2016-06-17 12:17 | Emergency (ER) | payer MEDICARE, OTHER, MEDICAID ==
[~2016-06-17] VITALS: Ht 190.5 cm; Wt 129.0 kg
[~2016-06-17 12:17] MED LIST changes: +CINN1POW MC; +FLUT16SP NSEACH; +HYDR-33 PO; +LEVO5TAB12 PO; +METO10TA7 PO; +MULT1TAB69 PO; +OMEG10005 PO; +TRAV5DRO OU; +UBID100C17 PO
[2016-06-17] MEDS ORDERED: ONDANSETRON 2 MG/ML (Z0FRAN) 2 ML VIAL IV ONE (13:05)
[2016-06-17] MEDS ORDERED: morphine INJ 4 MG/ML 1 ML SYRINGE IV ONE (13:05)
[2016-06-17] MEDS ORDERED: TIMO15DR11 OU (13:09)
--- NOTE | 2016-06-17 13:15 | NUR ---
IV start attempt unsuccessful to the LAC
--- NOTE | 2016-06-17 13:25 | NUR ---
The patient is up to the bathroom for BM and returns to bed with SBA. Lab in the room at this time
[2016-06-17 13:35] LABS: BASOPHILS % (AUTO) 0 % (0-2); EOSINOPHILS % (AUTO) 0 % (0-4); LYMPHOCYTES # (AUTO) 0.9 X10^3; MEAN PLATELET VOLUME 9.7 FL (6.0-9.5); MONOCYTES # (AUTO) 0.7 X10^3; MONOCYTES % (AUTO) 6 % (3-11); NEUTROPHILS # (AUTO) 9.1 X10^3; NEUTROPHILS % (AUTO) 85 % (51-67); PLATELET COUNT 178 10^3uL (150-450)
[2016-06-17 13:36] LABS: BILIRUBIN,URINE Negative (Negative); CLARITY,URINE Clear; COLOR,URINE Yellow; GLUCOSE, URINE (UA) Negative (Negative); LEUKOCYTE ESTERASE ,URINE Negative (Negative); UROBILINOGEN,URINE 0.2 mg/dL (0.2-1.0)
[2016-06-17 13:41] LABS: MEAN CORPUSCULAR HEMOGLOBIN 31.5 PG (26.0-34.0); MEAN CORPUSCULAR HGB CONC 31.5 g/dL (31.0-37.0); MEAN CORPUSCULAR VOLUME 100 FL (80-100)
[2016-06-17 13:47] LABS: ALBUMIN 3.8 g/dL (3.4-5.0); ANION GAP 14.7 MEQ/L (3-15); CALCULATED IONIZED CALCIUM 4.1 mg/dL (3.8-4.6); TOTAL PROTEIN 6.7 g/dL (6.4-8.5)
[2016-06-17] MEDS: SODIUM CHLORIDE FLUSH 3 ML SYR IV PRN ×2 (14:16→14:17)
[2016-06-17] MEDS: SODIUM CHLORIDE FLUSH 10 ML SYR IV PRN ×2 (14:18→14:29)
[2016-06-17] MEDS ORDERED: ONDANSETRON 2 MG/ML (Z0FRAN) 2 ML VIAL ONE (14:25)
[2016-06-17] MEDS ORDERED: morphine INJ 4 MG/ML 1 ML SYRINGE ONE (14:26)
--- NOTE | 2016-06-17 15:47 | Diagnostic Imaging Report ---
PROCEDURE: CT abdomen and pelvis with contrast. TECHNIQUE: Multiple contiguous axial images were obtained through the abdomen and pelvis after administration of intravenous contrast. INDICATION: History of fall with right-sided abdominal pain. FINDINGS: Contrasted images are obtained. Lung bases are clear. The liver appears normal. The kidneys and spleen are normal with normal enhancement. There is no evidence of visceral laceration. The gallbladder and bile ducts are normal. Pancreas is normal. The adrenal glands are not enlarged. Stomach and small bowel are not distended. The colon shows rather diffuse diverticulosis though no indication of diverticulitis at this time. Bladder is decompressed. There is no free air or free fluid. Bone windows show fractures along the anterolateral right 11th and 10th ribs which are minimally displaced. There is no evidence of pneumothorax or pleural effusion associated with these. Sagittal reconstructed images of the lumbar spine show good alignment. No evidence of compression fractures. Diffuse degenerative changes noted. IMPRESSION: 1. Fractures of the right anterolateral 10th and 11th ribs with minimal displacement. No evidence of pneumothorax or pleural effusion. 2. No evidence of visceral lacerations. Dictated on workstation # [id number]
[2016-06-17] MEDS ORDERED: morphine INJ 10 MG/ML 1 ML VIAL IV SCH (16:20)
[2016-06-17] MEDS ORDERED: HYDR-3702 PO (16:50)
[2016-06-17 18:58] VITALS: BP 132/65
== END 2016-06-17 17:40 | disposition home or self-care (01) ==
LOC: ED 12:19
DX: S22.41XA Multiple fractures of ribs, right side, initial encounter for closed fracture (principal); W19.XXXA Unspecified fall, initial encounter; K62.5 Hemorrhage of anus and rectum
CPT/HCPCS: 36415; 74177; 80053; 81003; 82274; 85025; 96361; 96374; 96375; 96376; 99283; J2270; J2405; J7030; Q9967

== ENCOUNTER → 2016-07-01 | Outpatient (CLI) | payer MEDICARE, OTHER, MEDICAID ==
[~2016-07-01] MED LIST changes: +HYDR-3702 PO; +TIMO15DR11 OU
== END ==
LOC: RT 09:07
PROVIDERS: ATTEND Internal Medicine Sleep Medicine
DX: J44.9 Chronic obstructive pulmonary disease, unspecified (principal)
CPT/HCPCS: 94060; 94726; 94729